=== PATIENT | male | born 1955 | race Caucasian/White ===

== ENCOUNTER 2018-02-06 18:51 | Emergency (ER) | payer SELFPAY ==
[2018-02-06] MEDS ORDERED: LISI20TA29 PO (19:02)
--- NOTE | 2018-02-06 19:03 | ER Report ---
History and Physical Time Seen By MD: 19:03 Hx. of Stated Complaint: patient has had a bloody nose for an hour and half. HPI/ROS CHIEF COMPLAINT: Nosebleed HISTORY OF PRESENT ILLNESS: This is a 62-year-old male who presents to the emergency department for a nosebleed. Patient states this is the 3rd nosebleed an approximate 48 hours. Patient states the other to have resolved however this one started about 2 hours ago and has not slowed. [facility] [place] [facility] [place] [facility]. Patient also states that his allergies have been pretty severe since arriving. Patient denies taking blood thinners, no aspirin. Patient denies history of recurrent nosebleeds. Denies aches, chills, nausea, vomiting or diarrhea. REVIEW OF SYSTEMS: Respiratory: No cough, no dyspnea. Cardiovascular: No chest pain, no palpitations. Gastrointestinal: No vomiting, no abdominal pain. Musculoskeletal: No back pain. ENT: As above. Allergies: Coded Allergies: No Known Drug Allergies (Unverified , 02/06/18) Home Meds Reported Medications Lisinopril (LISINOPRIL) 20 Mg Tablet, 20 MG PO BID, TAB 02/06/18 Past Medical/Surgical History Patient has a past medical and surgical history of hypertension. Reviewed Nurses Notes: Yes Constitutional Vital Sign - Last 24 Hours 02/06/18 02/06/18 18:59 21:04 Temp 98.3 Pulse 124 103 Resp 24 16 B/P (MAP) 139/98 145/98 (114) Pulse Ox 96 96 O2 Delivery Room Air Room Air Physical Exam General Appearance: The patient is alert, has no immediate need for airway protection and no current signs of toxicity. Eyes: Pupils equal and round no injection. ENT: Bleeding from the left nare. Bright red mixed with clots. Right Nare clear mucous membranes pink and moist, no active bleeding. Respiratory: Chest is non tender, lungs are clear to auscultation. Cardiac: regular rate and rhythm. Gastrointestinal: Abdomen is soft and non tender, no masses, bowel sounds normal. Musculoskeletal: Neck: Neck is supple and non tender. Extremities have full range of motion and are non tender. Skin: No rashes or lesions. DIFFERENTIAL DIAGNOSIS: After history and physical exam differential diagnosis was considered for nosebleed. Medical Decision Making ED Course/Re-evaluation ED Course The patient was admitted to a room. A history and physical were obtained. Differential diagnoses were considered. Patient had active bleeding was bright red blood from the left naris. I did try Afrin nasal spray initially with a clamp her proximal a 30-45 minutes. Patient continued to have some residual bleeding, the clamp was removed patient was instructed to blow his nose, which time I had a cotton ball soaked with TXA I did place this packing into the left near, packing was left in place for proximally 30-45 minutes. Patient did very well. Bleeding subsided, patient had no postnasal bleeding. Patient was instructed to take it easy for the next 1-2 days, apply a thin barrier of bacitracin or Vaseline to the inside of the left near,. If the bleeding begins again ahead and reapply the clamp and keep him place for at least 30 minutes. If the bleeding does not subside return to the emergency department for any other concerns or worsening symptoms. Patient was in agreement with his private care. No active bleeding at the time of discharge. 02/06/2018 7:41:59 pm the Afrin spray is not working. Go ahead and proceed with TXA. 02/06/2018 7:59:17 pm 500mg TXA soaked cotton ball to left nare. 02/06/2018 8:50:33 pm TXA cotton ball removed, no active bleeding at this time. Patient is ready for discharge. Decision to Disposition Date: Feb 06, 2018 Decision to Disposition Time: 20:50 Depart Departure Latest Vital Signs Vital Signs Date Time Temp Pulse Resp B/P (MAP) Pulse Ox O2 Delivery O2 Flow Rate FiO2 02/06/18 21:04 103 16 145/98 (114) 96 Room Air 02/06/18 18:59 98.3 Impression: Primary Impression: Left-sided nosebleed Condition: Improved Disposition: HOME OR SELF-CARE Patient Instructions: Nosebleed (ED) Additional Instructions: Drink plenty of water. Get plenty of rest. Tried avoid blowing your nose for the next 12 hours. Try some bacitracin or Vaseline on a Q-tip and likely code the inside of the left Nare. If the bleeding begins again apply the nasal clamp try to keep from pressure on the soft part of the nose for at least 30 minutes without inspecting the nostril. You can also try a cold pack to the back of the neck or the bridge of the nose. Keep her head tipped forward, avoid swallowing the blood if possible. Return to the emergency department for any other concerns or worsening symptoms. MATY PEARSON [employer] INS[employer] Feb 06, 2018 19:03
[2018-02-06] MEDS ORDERED: ENT KIT ONE (19:13)
[2018-02-06] MEDS ORDERED: TRANEXAMIC AC 1000 MG/10ML SDV 1,000 MG in NS(*) 0.9% 50 ML BAG 50 ML ONE (19:40)
[2018-02-06 21:04] VITALS: BP 145/98
[2018-02-06] MEDS ORDERED: PHENYLEPHRINE 0.5% 15 ML BTL ONE (21:46)
== END 2018-02-06 21:04 | disposition home or self-care (01) ==
LOC: ER 18:57
DX: R04.0 Epistaxis (principal)
CPT/HCPCS: 30901; 99283; J7050